=== PATIENT | female | born 1995 | race Caucasian/White ===

== ENCOUNTER 2018-08-12 22:36 | Emergency (ER) | payer OTHER ==
[~2018-08-12] VITALS: Ht 162.6 cm; Wt 81.7 kg
[2018-08-12 23:28] LABS: ABSOLUTE BASOPHILS 0.1 thou/uL (0.0-0.2); ABSOLUTE EOSINOPHILS 0.1 thou/uL (0.0-0.7); ABSOLUTE MONOCYTES 0.7 thou/uL (0.0-1.2); ABSOLUTE NEUTROPHILS 6.8 thou/uL (1.6-8.1); EOSINOPHILS 1.3 %; HEMATOCRIT 41.6 % (37.0-47.0); LYMPHOCYTES 27.8 %; MCH 28.2 pg (26.0-34.0); MCHC 33.6 g/dL (28.0-37.0); MCV 83.9 fL (80.0-100.0); MONOCYTES 6.6 %; MPV 8.2 fl. (7.2-11.1); NUCLEATED RBCS 0 /100WBC; PLATELET COUNT* 281 thou/uL (150-400); POLYS 63.3 %; RBC 4.97 mil/uL (4.20-5.00); RDW-CV 12.9 % (10.5-14.5); WBC 10.7 thou/uL (4.0-11.0)
[2018-08-12 23:49] LABS: PROTIME 10.7 Seconds (9.20-11.50)
[2018-08-12 23:59] LABS: ANION GAP 5 mmol/L (7-16); BUN 11 mg/dL (7-18); CALCIUM 8.3 mg/dL (8.5-10.1); CHLORIDE 103 mmol/L (98-107); CO2 28 mmol/L (21-32); CREATININE 0.8 mg/dL (0.6-1.3); GLUCOSE 84 mg/dL (70-99); POTASSIUM 3.4 mmol/L (3.5-5.1); SODIUM 136 mmol/L (136-145)
[2018-08-13 00:03] LABS: ALBUMIN 3.6 g/dL (3.4-5.0); ALKALINE PHOSPHATASE 61 U/L (46-116); NT-PRO BRAIN NAT PEPTIDE 9 pg/mL (<300); SGOT 17 U/L (15-37); SGPT 29 U/L (30-65); TOTAL BILIRUBIN 0.3 mg/dL (<0.1-1.0); TROPONIN-I LEVEL <0.06 ng/mL (<0.06)
[2018-08-13 00:08] LABS: URINE BILIRUBIN NEGATIVE (Negative); URINE BLOOD NEGATIVE (Negative); URINE CLARITY CLEAR; URINE COLOR YELLOW; URINE GLUCOSE-RANDOM NEGATIVE (Negative); URINE KETONES NEGATIVE (Negative); URINE LEUKOCYTES-REFLEX NEGATIVE (Negative); URINE NITRITE-REFLEX NEGATIVE (Negative); URINE PROTEIN NEGATIVE (Negative); URINE SPECIFIC GRAVITY 1.025 (1.005-1.030); URINE UROBILINOGEN 0.2 E.U./dl (0.2-1.0)
[2018-08-13 00:12] LABS: AMP/METHAMP Negative (Negative); BARBITURATES Negative (Negative); BENZODIAZEPINES Negative (Negative); COCAINE Negative (Negative); METHADONE Negative (Negative); OPIATES Negative (Negative); PCP Negative (Negative); THC Negative (Negative)
[2018-08-13] MEDS ORDERED: PAXIL10 MG PO (00:43)
[2018-08-13] MEDS ORDERED: HYDROXYZINE HCL25 M1 PO (00:43)
[2018-08-13 00:53] VITALS: BP 124/59
--- NOTE | 2018-08-13 17:24 | EKG ---
[place] [address] ELECTROCARDIOGRAM REPORT Name: NYDIA GUTIERREZ Room: [facility]#: [id number] Admission: 08/12/18 Attend Phys: Discharge: 08/13/18 Date of : [birth year] Report #: [id number] THIS REPORT FOR: //name// [facility] ED Test Date: 2018-08-12 Test Time: 22:55:54 Pat Name: NYDIA GUTIERREZ Department: Room: Gender: F Rn Nursery: : 1995 Requested By: Mariana Zarate Order Number: [id number] MD: Cristofer Boyd Measurements Intervals [place] Rate: 89 P: 20 [place]: 137 QRS: 78 QRSD: 105 T: 3 QT: 353 QTc: 430 Interpretive Statements Sinus rhythm Borderline T wave abnormalities Baseline wander in lead(s) V6 No previous ECG available for comparison Electronically Signed On 08-13-2018 17:24:07 CDT by Cristofer Boyd [email or web address] <ELECTRONICALLY SIGNED> By: Cristofer Boyd MD, [facility] 08/13/18 1724 D: [id number] Cristofer Boyd MD, FACC /EPI
== END 2018-08-13 00:54 | disposition home or self-care (01) ==
LOC: M.ERS 22:36
PROVIDERS: Emergency Medicine
DX: F41.9 Anxiety disorder, unspecified (principal)

== ENCOUNTER 2018-10-18 14:52 | Emergency (ER) | payer OTHER ==
[~2018-10-18] VITALS: Ht 157.5 cm; Wt 90.3 kg
[~2018-10-18 14:52] MED LIST: HYDROXYZINE HCL25 M1 PO; PAXIL10 MG PO
[2018-10-18] MEDS ORDERED: PAXIL10 MG PO (15:11)
[2018-10-18] MEDS ORDERED: PHENERGAN 25 MG25 M1 PO (16:48)
[2018-10-18] MEDS ORDERED: BUTALB-APAP-CA1 EACH PO (16:48)
[2018-10-18 17:00] VITALS: BP 105/70
== END 2018-10-18 17:01 | disposition home or self-care (01) ==
LOC: M.ERS 14:52
DX: R51 Headache (principal); F41.9 Anxiety disorder, unspecified; F32.9 Major depressive disorder, single episode, unspecified

== ENCOUNTER 2018-12-09 16:20 | Emergency (ER) | payer OTHER ==
[~2018-12-09] VITALS: Ht 162.6 cm; Wt 92.1 kg
[~2018-12-09 16:20] MED LIST changes: +BUTALB-APAP-CA1 EACH PO; +PHENERGAN 25 MG25 M1 PO
[2018-12-09] MEDS ORDERED: CELEXA40 MG PO (16:30)
[2018-12-09] MEDS ORDERED: ATIVAN0.5 MG PO (16:30)
[2018-12-09] MEDS ORDERED: IBUPROFEN 800800 M1 PO (17:13)
[2018-12-09] MEDS ORDERED: TRAMADOL 50 MG50 MG PO (17:13)
[2018-12-09 17:38] VITALS: BP 129/66
== END 2018-12-09 17:38 | disposition home or self-care (01) ==
LOC: M.ERS 16:20
DX: M25.561 Pain in right knee (principal); F32.9 Major depressive disorder, single episode, unspecified; F41.9 Anxiety disorder, unspecified; F17.210 Nicotine dependence, cigarettes, uncomplicated

== ENCOUNTER → 2018-12-16 | Outpatient (CLI) | payer OTHER ==
[~2018-12-16] MED LIST changes: +ATIVAN0.5 MG PO; +CELEXA40 MG PO; +IBUPROFEN 800800 M1 PO; +TRAMADOL 50 MG50 MG PO
== END ==
LOC: M.MRI 07:21
DX: S83.241A Other tear of medial meniscus, current injury, right knee, initial encounter (principal); M25.461 Effusion, right knee; R60.0 Localized edema; X58.XXXA Exposure to other specified factors, initial encounter; Y93.89 Activity, other specified; Y92.89 Other specified places as the place of occurrence of the external cause; Y99.8 Other external cause status

== ENCOUNTER 2019-01-25 14:39 | Emergency (ER) | payer OTHER ==
[~2019-01-25] VITALS: Ht 162.6 cm; Wt 92.1 kg
[2019-01-25 14:56] LABS: URINE BILIRUBIN NEGATIVE (Negative); URINE BLOOD NEGATIVE (Negative); URINE CLARITY CLEAR; URINE COLOR YELLOW; URINE GLUCOSE-RANDOM NEGATIVE (Negative); URINE KETONES NEGATIVE (Negative); URINE LEUKOCYTES-REFLEX NEGATIVE (Negative); URINE NITRITE-REFLEX NEGATIVE (Negative); URINE PROTEIN NEGATIVE (Negative)
[2019-01-25 15:12] LABS: ABSOLUTE BASOPHILS 0.1 thou/uL (0.0-0.2); ABSOLUTE EOSINOPHILS 0.1 thou/uL (0.0-0.7); ABSOLUTE LYMPHOCYTES 2.3 thou/uL (0.8-5.3); ABSOLUTE MONOCYTES 0.5 thou/uL (0.0-1.2); ABSOLUTE NEUTROPHILS 7.2 thou/uL (1.6-8.1); BASOPHILS 0.6 %; EOSINOPHILS 1.1 %; HEMATOCRIT 46.1 % (37.0-47.0); HEMOGLOBIN 15.7 gm/dL (12.0-15.0); LYMPHOCYTES 22.3 %; MCH 28.8 pg (26.0-34.0); MCHC 34.1 g/dL (28.0-37.0); MCV 84.6 fL (80.0-100.0); MONOCYTES 5.2 %; MPV 8.3 fl. (7.2-11.1); NUCLEATED RBCS 0 /100WBC; PLATELET COUNT* 326 thou/uL (150-400); POLYS 70.8 %; RBC 5.46 mil/uL (4.20-5.00); RDW-CV 13.5 % (10.5-14.5); WBC 10.1 thou/uL (4.0-11.0)
[2019-01-25 15:23] LABS: CALCIUM 8.8 mg/dL (8.5-10.1); CREATININE 0.8 mg/dL (0.6-1.3); POTASSIUM 3.7 mmol/L (3.5-5.1)
[2019-01-25] MEDS ORDERED: ZOFRAN ODT4 MG PO (15:48)
[2019-01-25 16:05] VITALS: BP 127/60
== END 2019-01-25 16:05 | disposition home or self-care (01) ==
LOC: M.ERS 14:39
PROVIDERS: Nurse Practitioner Psychiatric/Mental Health
DX: R11.2 Nausea with vomiting, unspecified (principal); R10.32 Left lower quadrant pain; F41.9 Anxiety disorder, unspecified; F32.9 Major depressive disorder, single episode, unspecified

== ENCOUNTER 2019-03-10 19:16 | Emergency (ER) | payer OTHER ==
[~2019-03-10] VITALS: Ht 162.6 cm; Wt 91.6 kg
[~2019-03-10 19:16] MED LIST changes: +ZOFRAN ODT4 MG PO
[2019-03-10 20:49] LABS: ABSOLUTE BASOPHILS 0.1 thou/uL (0.0-0.2); ABSOLUTE EOSINOPHILS 0.2 thou/uL (0.0-0.7); ABSOLUTE LYMPHOCYTES 2.7 thou/uL (0.8-5.3); ABSOLUTE MONOCYTES 0.6 thou/uL (0.0-1.2); ABSOLUTE NEUTROPHILS 6.2 thou/uL (1.6-8.1); BASOPHILS 1.4 %; EOSINOPHILS 1.6 %; HEMATOCRIT 44.6 % (37.0-47.0); HEMOGLOBIN 15.1 gm/dL (12.0-15.0); LYMPHOCYTES 27.5 %; MCV 85.5 fL (80.0-100.0); MONOCYTES 6.3 %; MPV 8.1 fl. (7.2-11.1); NUCLEATED RBCS 0 /100WBC; PLATELET COUNT* 328 thou/uL (150-400); POLYS 63.2 %; RBC 5.21 mil/uL (4.20-5.00); RDW-CV 13.9 % (10.5-14.5); WBC 9.8 thou/uL (4.0-11.0)
[2019-03-10 20:57] LABS: CALCIUM 8.9 mg/dL (8.5-10.1); CREATININE 0.8 mg/dL (0.6-1.3); POTASSIUM 3.6 mmol/L (3.5-5.1)
[2019-03-10 21:01] LABS: ALBUMIN 3.8 g/dL (3.4-5.0); TOTAL BILIRUBIN 0.3 mg/dL (<0.1-1.0); TOTAL PROTEIN 7.6 g/dL (6.4-8.2)
[2019-03-10] MEDS ORDERED: CLEOCIN HCL300 MG PO (21:30)
[2019-03-10 22:07] VITALS: BP 135/54
== END 2019-03-10 22:08 | disposition home or self-care (01) ==
LOC: M.ERS 19:16
PROVIDERS: Nurse Practitioner Family
DX: L03.211 Cellulitis of face (principal); F32.9 Major depressive disorder, single episode, unspecified; F41.9 Anxiety disorder, unspecified

== ENCOUNTER 2020-01-31 11:28 | Inpatient (IN) | payer OTHER ==
[~2020-01-31] VITALS: Ht 162.6 cm; Wt 107.2 kg
[~2020-01-31 11:28] MED LIST changes: -ATIVAN0.5 MG PO; +ATIVAN1 M1 PO; +CLEOCIN HCL300 MG PO; +ONDANSETRON HCL4 M2 PO
[2020-01-31 11:36] VITALS: BP 157/76
[2020-01-31 12:05] LABS: ABSOLUTE BASOPHILS 0.1 thou/uL (0.0-0.2); ABSOLUTE EOSINOPHILS 0.1 thou/uL (0.0-0.7); ABSOLUTE MONOCYTES 0.4 thou/uL (0.0-1.2); ABSOLUTE NEUTROPHILS 4.6 thou/uL (1.6-8.1); BASOPHILS 1.3 %; EOSINOPHILS 1.9 %; HEMATOCRIT 45.4 % (37.0-47.0); HEMOGLOBIN 15.9 gm/dL (12.0-15.0); LYMPHOCYTES 27.8 %; MCH 30.9 pg (26.0-34.0); MCHC 35.1 g/dL (28.0-37.0); MONOCYTES 5.4 %; MPV 7.5 fl. (7.2-11.1); NUCLEATED RBCS 0 /100WBC; PLATELET COUNT* 286 thou/uL (150-400); POLYS 63.6 %; RBC 5.17 mil/uL (4.20-5.00); RDW-CV 13.1 % (10.5-14.5); WBC 7.2 thou/uL (4.0-11.0)
[2020-01-31 12:07] LABS: CALCIUM 8.6 mg/dL (8.5-10.1); POTASSIUM 3.8 mmol/L (3.5-5.1)
[2020-01-31 12:16] LABS: BE 0.9 mmol/L (-2 to +3); PCO2 44.7 mmHg (35.0-45.0); pH 7.388 (7.340-7.450)
[2020-01-31 12:17] LABS: PO2 53.5 mmHg (75.0-100.0)
[2020-01-31 12:18] LABS: ALBUMIN 3.8 g/dL (3.4-5.0); MAGNESIUM 1.9 mg/dL (1.8-2.4); TOTAL BILIRUBIN 0.3 mg/dL (<0.1-1.0); TOTAL PROTEIN 7.4 g/dL (6.4-8.2)
[2020-01-31 14:16] VITALS: BP 141/76
[2020-01-31 14:19] VITALS: BP 129/82
--- NOTE | 2020-01-31 18:14 | NUR ---
PT ADMITTED TO ROOM 200 VIA CART FROM ED AT APPROX 1415. PT ORIENTED TO ROOM AND CALL LIGHT. ADMISSION ASSESSMENT AND HX COMPLETED CHARTED. SEPSIS SCREEN NEG. HOME MEDS RECONCILED. PT A&OX4, C/O HEADACHE, TREATED W/ PRN TYLENOL. ON 6L HIGH FLOW NC, SATTING 96%. TRACING SR ON PUBLISHING DIRECTOR. PT UP STAND BY ASSIST. MEDS PER DEC, WILL CONTINUE POC.
[2020-01-31 20:00] VITALS: BP 141/72
[2020-02-01] VITALS: BP 108/45
[2020-02-01 04:00] VITALS: BP 131/51
[2020-02-01 04:53] LABS: ABSOLUTE BASOPHILS 0.1 thou/uL (0.0-0.2); ABSOLUTE EOSINOPHILS 0.2 thou/uL (0.0-0.7); ABSOLUTE LYMPHOCYTES 2.4 thou/uL (0.8-5.3); ABSOLUTE MONOCYTES 0.5 thou/uL (0.0-1.2); ABSOLUTE NEUTROPHILS 4.3 thou/uL (1.6-8.1); BASOPHILS 0.9 %; EOSINOPHILS 2.2 %; HEMATOCRIT 41.5 % (37.0-47.0); HEMOGLOBIN 14.4 gm/dL (12.0-15.0); LYMPHOCYTES 31.8 %; MCH 30.6 pg (26.0-34.0); MCHC 34.6 g/dL (28.0-37.0); MCV 88.5 fL (80.0-100.0); MONOCYTES 6.9 %; MPV 8.2 fl. (7.2-11.1); NUCLEATED RBCS 0 /100WBC; PLATELET COUNT* 249 thou/uL (150-400); POLYS 58.2 %; RBC 4.69 mil/uL (4.20-5.00); WBC 7.5 thou/uL (4.0-11.0)
[2020-02-01 05:28] LABS: CALCIUM 8.2 mg/dL (8.5-10.1); CREATININE 0.9 mg/dL (0.6-1.3); POTASSIUM 3.6 mmol/L (3.5-5.1)
--- NOTE | 2020-02-01 05:52 | NUR ---
PATIENT SLEPT MOST OF THE NIGHT. PATIENT HAD NO COMPLAINTS OF PAIN. IV REMAINS SALINE LOCKED. PATIENT REMAINS ON OXYGEN AT 6L HFNC. PATIENT IS POSSIBLY GOING HOME TODAY. WILL CONTINUE TO MONITOR.
[2020-02-01 06:13] LABS: AMP/METHAMP Negative (Negative); BARBITURATES Negative (Negative); BENZODIAZEPINES Negative (Negative); COCAINE Negative (Negative); METHADONE Negative (Negative); OPIATES Negative (Negative); PCP Negative (Negative); THC Negative (Negative)
[2020-02-01 08:00] VITALS: BP 115/69
[2020-02-01 09:24] LABS: BE -1.6 mmol/L (-2 to +3); PCO2 40.1 mmHg (35.0-45.0); pH 7.382 (7.340-7.450)
[2020-02-01 09:27] LABS: PO2 126.9 mmHg (75.0-100.0)
[2020-02-01 10:25] VITALS: BP 115/69
--- NOTE | 2020-02-01 10:39 | NUR ---
ASSUMED PT CARE AT 0800, AOX4, UP AD REINIER, O2 SAT 90'S 4L HIGH FLOW. O2 SUPPLEMENT WEAN OFF TO ROOM AIR. TRACING SR ON TELE. PT COMPLAINS OF HEADACHE, MEDS GIVEN WITH RELIEF. PT FOR DISCHARGE, AM ASSESSMENT CHARTED, VSS, HOURLY ROUNDING, WILL CONTINUE TO MONITOR.
--- NOTE | 2020-02-01 11:13 | NUR ---
DISCHARGED PLAN DISCUSSED WITH PT. IV, TELE REMOVED. MEDICATION PACKET GIVEN. REMINDED TO FOLLOW UP PCP. ALL BELONGINGS PACKED AND CHECK. LEFT THE UNIT AT 1105.
--- NOTE | 2020-02-01 13:13 | EKG ---
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 : 1995 Requested By: Erlin Mireles Order Number: [id number] MD: Keny Langford Measurements Intervals [place] Rate: 95 P: 33 [place]: 137 QRS: 63 QRSD: 100 T: 35 QT: 365 QTc: 459 Interpretive Statements Sinus rhythm Borderline T wave abnormalities Baseline wander in lead(s) I Compared to ECG 04/15/2019 16:24:01 T-wave abnormality now present Electronically Signed On 02-01-2020 13:12:15 CDT by Keny Langford [email or web address] <ELECTRONICALLY SIGNED> By: Keny Langford MD, [facility] 02/01/20 1312 1144 1144 Keny Langford MD, [facility] /EPI
== END 2020-02-01 11:10 | disposition home or self-care (01) | DRG 918 ==
LOC: M.ERS 11:28 → M.TBA-ER 12:46 → M.2W 12:46
PROVIDERS: Emergency Medicine Emergency Medical Services; ADMIT Internal Medicine
DX: T58.91XA Toxic effect of carbon monoxide from unspecified source, accidental (unintentional), initial encounter (principal); F41.9 Anxiety disorder, unspecified; F32.9 Major depressive disorder, single episode, unspecified; F17.210 Nicotine dependence, cigarettes, uncomplicated; Y92.89 Other specified places as the place of occurrence of the external cause